=== PATIENT | female | born 1950 | race Two or more races ===

== ENCOUNTER 2019-01-21 11:27 | Emergency (ER) | payer OTHER ==
[~2019-01-21] VITALS: Ht 160 cm; Wt 81.6 kg
[2019-01-21 11:36] VITALS: BP 148/96
[2019-01-21] MEDS ORDERED: METHOCARBAMOL 500 MG TAB PO ONE (14:30)
[2019-01-21] MEDS ORDERED: KETOROLAC TROMETH 30 MG/ML 1ML VIAL IM ONE (14:30)
== END 2019-01-21 15:10 | disposition home or self-care (01) ==
LOC: ER 11:27
DX: S80.02XA Contusion of left knee, initial encounter (principal); S80.01XA Contusion of right knee, initial encounter; R51 Headache; M54.6 Pain in thoracic spine; M54.5 Low back pain; E78.5 Hyperlipidemia, unspecified; V43.62XA Car passenger injured in collision with other type car in traffic accident, initial encounter; Y93.89 Activity, other specified; Y92.488 Other paved roadways as the place of occurrence of the external cause; Y99.8 Other external cause status
CPT/HCPCS: 70450; 72100; 96372; 99284; J1885